=== PATIENT | male | born 1935 | race Caucasian/White ===

== ENCOUNTER 2016-11-12 07:14 | Emergency (ER) | payer OTHER ==
[~2016-11-12] VITALS: Ht 175.3 cm; Wt 79.0 kg
[~2016-11-12 07:14] MED LIST: ASPIRIN325 MG PO; HYDROCODON-ACE1 EAC7 PO; LIPITOR10 MG PO; LO-DOSE ASPIRIN81 M1 PO; LYRICA150 MG PO; TIZANIDINE HCL4 M1 PO; TRAMADOL HCL100 MG PO; ZANAFLEX4 MG PO
[2016-11-12 08:36] LABS: EOSINOPHIL (%) 0.8 % (0-5); EOSINOPHIL COUNT 0.1 K/uL (0-0.3); HEMATOCRIT 43.9 % (38.0-50.0); IMMATURE GRANULOCYTE (%) 0.1 % (0.0-0.7); IMMATURE GRANULOCYTE COUNT 0.1 K/uL; LYMPHOCYTE COUNT 1.6 K/uL (1.0-2.8); MCH 33.1 PG (29.0-34.0); MCHC 34.9 G/DL (30.0-36.0); MEAN PLAT.VOLUME 9.9 uM^3 (9.0-12.4); MONOCYTE (%) 6.4 % (3-12); MONOCYTE COUNT 0.5 K/uL (0-0.8); NEUTROPHIL (%) 73.7 % (45-76); NEUTROPHIL COUNT 6.2 K/uL (1.8-6.4); PLATELET COUNT 122 K/uL (156-360); RBC DIS.WIDTH-CV 14.2 % (11.8-14.6); RBC DIS.WIDTH-SD 47.2 % (39-53); RED BLOOD COUNT 4.62 M/uL (4.00-5.50); WHITE BLOOD COUNT 8.4 K/uL (4.1-10.2)
[2016-11-12 08:46] LABS: INTER. NORMALIZED RATIO 1.1; PROTHROMBIN TIME 10.7 (9.2-11.2)
[2016-11-12 08:47] LABS: CHLORIDE 109 mEq/L (99-109)
[2016-11-12 08:48] LABS: SODIUM 139 mEq/L (136-147)
[2016-11-12 08:49] LABS: GLUCOSE 103 mg/dL (70-99)
[2016-11-12 08:51] LABS: ANION GAP 8 MEQ/L (2-14)
[2016-11-12 08:53] LABS: GFR ESTIMATE (CALCULATED) > 59 mL/min/
[2016-11-12 08:54] LABS: UREA NITROGEN (BUN) 15 mg/dL (9-23)
[2016-11-12 09:52] VITALS: BP 157/86
== END 2016-11-12 09:52 | disposition home or self-care (01) ==
LOC: EME 07:14
PROVIDERS: Emergency Medicine
DX: R04.0 Epistaxis (principal); G89.29 Other chronic pain; Z79.891 Long term (current) use of opiate analgesic; Z79.82 Long term (current) use of aspirin; F17.200 Nicotine dependence, unspecified, uncomplicated
CPT/HCPCS: 80048; 85025; 85610; 99281; 99283

== ENCOUNTER 2017-06-13 11:47 | Inpatient (IN) | payer OTHER ==
[~2017-06-13] VITALS: Ht 175.3 cm; Wt 77.3 kg
[2017-06-13 13:16] LABS: HEMATOCRIT 31.9 % (38.0-50.0); MCH 32.6 PG (29.0-34.0); MCHC 33.5 G/DL (30.0-36.0); MCV 97.3 FL (86-99); MEAN PLAT.VOLUME 9.7 uM^3 (9.0-12.4); PLATELET COUNT 145 K/uL (156-360); RBC DIS.WIDTH-CV 14.7 % (11.8-14.6); RED BLOOD COUNT 3.28 M/uL (4.00-5.50); WHITE BLOOD COUNT 7.6 K/uL (4.1-10.2)
[2017-06-13 13:36] LABS: TROP-I INTERPRETATION NEGATIVE; TROPONIN-I < 0.01 ng/mL (0.0-0.30)
[2017-06-13 13:51] LABS: CHLORIDE 110 mEq/L (99-109); POTASSIUM 4.2 mEq/L (3.7-5.4); SODIUM 143 mEq/L (136-147)
[2017-06-13 13:52] LABS: GLUCOSE 136 mg/dL (70-99)
[2017-06-13 13:54] LABS: ANION GAP 9 MEQ/L (2-14)
[2017-06-13 13:56] LABS: GFR ESTIMATE (CALCULATED) > 59 mL/min/
[2017-06-13 13:57] LABS: UREA NITROGEN (BUN) 45 mg/dL (9-23)
[2017-06-13] MEDS ORDERED: FLOMAX0.4 MG PO (17:23)
[2017-06-13] MEDS ORDERED: ONE-A-DAY ESSE1 EAC1 PO (17:23)
[2017-06-13 19:50] VITALS: BP 160/85
[2017-06-13 22:19] LABS: HEMATOCRIT 22.4 % (38.0-50.0); MCV 98.2 FL (86-99)
[2017-06-14] VITALS (10 sets, daily range): BP systolic 117–136; BP diastolic 56–80
[2017-06-14 06:04] LABS: EOSINOPHIL (%) 1.5 % (0-5); EOSINOPHIL COUNT 0.1 K/uL (0-0.3); HEMATOCRIT 22.5 % (38.0-50.0); IMMATURE GRANULOCYTE (%) 0.2 % (0.0-0.7); INSTRUMENT ABS NEUTROPHIL CT 3.5 K/uL; LYMPHOCYTE COUNT 2.4 K/uL (1.0-2.8); MCH 33.6 PG (29.0-34.0); MCHC 34.2 G/DL (30.0-36.0); MCV 98.3 FL (86-99); MEAN PLAT.VOLUME 9.8 uM^3 (9.0-12.4); MONOCYTE (%) 7.1 % (3-12); MONOCYTE COUNT 0.5 K/uL (0-0.8); NEUTROPHIL (%) 53.2 % (45-76); NEUTROPHIL COUNT 3.5 K/uL (1.8-6.4); PLATELET COUNT 116 K/uL (156-360); RBC DIS.WIDTH-CV 14.6 % (11.8-14.6); RBC DIS.WIDTH-SD 52.5 % (39-53); WHITE BLOOD COUNT 6.5 K/uL (4.1-10.2)
[2017-06-14 06:07] LABS: RED BLOOD COUNT 2.29 M/uL (4.00-5.50)
[2017-06-14 06:25] LABS: ALKALINE PHOSPHATASE 48 IU/L (3-129); ANION GAP 3 MEQ/L (2-14); CHLORIDE 112 MEQ/L (99-109); GFR ESTIMATE (CALCULATED) > 59 mL/min/; SAMPLE HEMOLYSIS CHECK 0; SAMPLE ICTERIC CHECK 0; SAMPLE LIPEMIA CHECK 0; SODIUM 141 MEQ/L (136-147); TOTAL BILIRUBIN 0.5 MG/DL (0.0-1.0); UREA NITROGEN (BUN) 38 mg/dL (9-23)
[2017-06-14 06:34] LABS: GLUCOSE 85 mg/dL (70-99)
[2017-06-15 06:29] LABS: EOSINOPHIL (%) 1.6 % (0-5); EOSINOPHIL COUNT 0.1 K/uL (0-0.3); HEMATOCRIT 25.6 % (38.0-50.0); IMMATURE GRANULOCYTE (%) 0.4 % (0.0-0.7); INSTRUMENT ABS NEUTROPHIL CT 4.4 K/uL; LYMPHOCYTE COUNT 1.7 K/uL (1.0-2.8); MCH 32.4 PG (29.0-34.0); MCHC 34.4 G/DL (30.0-36.0); MEAN PLAT.VOLUME 9.5 uM^3 (9.0-12.4); MONOCYTE (%) 7.2 % (3-12); MONOCYTE COUNT 0.5 K/uL (0-0.8); NEUTROPHIL (%) 64.8 % (45-76); NEUTROPHIL COUNT 4.4 K/uL (1.8-6.4); PLATELET COUNT 106 K/uL (156-360); RBC DIS.WIDTH-SD 54.7 % (39-53); RED BLOOD COUNT 2.72 M/uL (4.00-5.50); WHITE BLOOD COUNT 6.8 K/uL (4.1-10.2)
[2017-06-15 06:33] LABS: MCV 94.1 FL (86-99)
[2017-06-15 06:39] LABS: ALKALINE PHOSPHATASE 50 IU/L (3-129); ANION GAP 6 MEQ/L (2-14); CHLORIDE 114 MEQ/L (99-109); GFR ESTIMATE (CALCULATED) > 59 mL/min/; GLUCOSE 86 mg/dL (70-99); POTASSIUM 3.9 MEQ/L (3.7-5.4); SAMPLE HEMOLYSIS CHECK 0; SAMPLE ICTERIC CHECK 0; SAMPLE LIPEMIA CHECK 0; SODIUM 145 MEQ/L (136-147); TOTAL BILIRUBIN 0.6 MG/DL (0.0-1.0)
[2017-06-15 06:47] LABS: UREA NITROGEN (BUN) 17 mg/dL (9-23)
[2017-06-15 07:30] VITALS: BP 110/57
[2017-06-15 11:56] VITALS: BP 123/51
[2017-06-15 15:50] VITALS: BP 118/63
[2017-06-15 23:47] VITALS: BP 128/56
[2017-06-16 06:35] LABS: EOSINOPHIL (%) 1.9 % (0-5); EOSINOPHIL COUNT 0.1 K/uL (0-0.3); HEMATOCRIT 24.3 % (38.0-50.0); IMMATURE GRANULOCYTE (%) 0.2 % (0.0-0.7); INSTRUMENT ABS NEUTROPHIL CT 3.1 K/uL; LYMPHOCYTE COUNT 1.7 K/uL (1.0-2.8); MCH 33.1 PG (29.0-34.0); MCHC 34.6 G/DL (30.0-36.0); MCV 95.7 FL (86-99); MEAN PLAT.VOLUME 9.8 uM^3 (9.0-12.4); MONOCYTE (%) 8.5 % (3-12); MONOCYTE COUNT 0.5 K/uL (0-0.8); NEUTROPHIL (%) 57.9 % (45-76); NEUTROPHIL COUNT 3.1 K/uL (1.8-6.4); PLATELET COUNT 104 K/uL (156-360); RBC DIS.WIDTH-CV 15.7 % (11.8-14.6); RBC DIS.WIDTH-SD 54.1 % (39-53); RED BLOOD COUNT 2.54 M/uL (4.00-5.50); WHITE BLOOD COUNT 5.3 K/uL (4.1-10.2)
[2017-06-16 07:59] VITALS: BP 155/70
[2017-06-16 11:06] VITALS: BP 123/55
[2017-06-16 15:47] VITALS: BP 152/71
[2017-06-17 00:19] VITALS: BP 103/56
[2017-06-17 06:26] LABS: HEMATOCRIT 23.4 % (38.0-50.0); MCH 34.2 PG (29.0-34.0); MCHC 35.5 G/DL (30.0-36.0); MCV 96.3 FL (86-99); MEAN PLAT.VOLUME 9.8 uM^3 (9.0-12.4); PLATELET COUNT 119 K/uL (156-360); RBC DIS.WIDTH-CV 15.4 % (11.8-14.6); RBC DIS.WIDTH-SD 52.2 % (39-53); RED BLOOD COUNT 2.43 M/uL (4.00-5.50)
[2017-06-17 06:47] LABS: ANION GAP 6 MEQ/L (2-14); CHLORIDE 108 MEQ/L (99-109); GFR ESTIMATE (CALCULATED) > 59 mL/min/; GLUCOSE 90 mg/dL (70-99); POTASSIUM 3.6 MEQ/L (3.7-5.4); SAMPLE HEMOLYSIS CHECK 0; SAMPLE ICTERIC CHECK 0; SAMPLE LIPEMIA CHECK 0; SODIUM 141 MEQ/L (136-147); UREA NITROGEN (BUN) 8 mg/dL (9-23)
[2017-06-17 08:22] VITALS: BP 107/58
[2017-06-17] MEDS ORDERED: NICOTINE PATCH1 EAC2 TD (11:51)
[2017-06-17] MEDS ORDERED: PROTONIX40 MG PO (11:52)
== END 2017-06-17 13:40 | disposition home or self-care (01) | DRG 378 ==
LOC: EME 11:47 → EDOF 15:21 → 5SOUTH 15:21 → ENRESERV 15:25 → 5SOUTH 19:42
PROVIDERS: Hospitalist; Internal Medicine; Internal Medicine Gastroenterology; Physician Assistant; Specialist
DX: K92.1 Melena (principal); D50.0 Iron deficiency anemia secondary to blood loss (chronic); D62 Acute posthemorrhagic anemia; E78.5 Hyperlipidemia, unspecified; I25.10 Atherosclerotic heart disease of native coronary artery without angina pectoris; D12.5 Benign neoplasm of sigmoid colon; D12.2 Benign neoplasm of ascending colon; D12.3 Benign neoplasm of transverse colon; M54.9 Dorsalgia, unspecified; K44.9 Diaphragmatic hernia without obstruction or gangrene; G89.29 Other chronic pain; F17.210 Nicotine dependence, cigarettes, uncomplicated; D12.4 Benign neoplasm of descending colon; K29.70 Gastritis, unspecified, without bleeding; K29.80 Duodenitis without bleeding; K31.819 Angiodysplasia of stomach and duodenum without bleeding; K59.00 Constipation, unspecified; I10 Essential (primary) hypertension; L53.8 Other specified erythematous conditions; Q27.33 Arteriovenous malformation of digestive system vessel; Z79.82 Long term (current) use of aspirin
CPT/HCPCS: 80048; 80053; 84484; 85014; 85018; 85025; 85027; 86900; 86901; 86920; 88305; 88342 TC; 93005; 99281; 99285; C9113; J3010; J7030; P9016

== ENCOUNTER → 2018-06-23 | Outpatient (CLI) | payer MEDICARE, OTHER ==
[~2018-06-23] MED LIST changes: +FLOMAX0.4 MG PO; +NICOTINE PATCH1 EAC2 TD; +ONE-A-DAY ESSE1 EAC1 PO; +PROTONIX40 MG PO
== END | disposition home or self-care (01) ==
LOC: CDC 10:44
DX: Z01.810 Encounter for preprocedural cardiovascular examination (principal); I70.25 Atherosclerosis of native arteries of other extremities with ulceration; R00.1 Bradycardia, unspecified; I49.1 Atrial premature depolarization
CPT/HCPCS: 93000